=== PATIENT | male | born 1955 | race African-American/Black ===

== ENCOUNTER 2019-08-09 11:23 | Outpatient (CLI) | payer OTHER | END 2019-08-09 19:08 | disposition home or self-care (01) | LOC: CT 11:23 | DX: M54.16 Radiculopathy, lumbar region (principal); M25.551 Pain in right hip ==

== ENCOUNTER 2020-04-18 14:03 | Outpatient (CLI) | payer OTHER | END 2020-04-18 22:35 | disposition home or self-care (01) | LOC: MRI 14:03 | DX: G45.9 Transient cerebral ischemic attack, unspecified (principal); R20.0 Anesthesia of skin; R53.1 Weakness ==